=== PATIENT | male | born 1985 | race American Indian/Alaskan Native ===

== ENCOUNTER 2017-11-28 12:26 | Emergency (ER) | payer OTHER ==
[2017-11-28 12:43] VITALS: BP 121/92; PULSE 91; TEMP 98.2; BMI 32.5
[2017-11-28] MEDS ORDERED: DIPHTH,PERTUSS(ACELL),TET 0.5 ML DISP.SYRIN IM ONE (13:16)
--- NOTE | 2017-11-28 13:16 | PDOC ---
History of Present Illness - General Chief Complaint: Injury Stated Complaint: INJURY Time Seen by Provider: 11/28/17 13:02 History Source: Patient Exam Limitations: No Limitations - History of Present Illness Initial Comments: CHIEF COMPLAINT: 32 y/o afebrile male here with puncture wound to left foot. HISTORY OF PRESENT ILLNESS: The patient states he stepped on a dirty nail yesterday. He is here for a tetanus shot. Past History - Past Medical History Allergies/Adverse Reactions: Allergies Allergy/AdvReac Type Severity Reaction Status Date / Time No Known Allergies Allergy Verified 11/28/17 12:33 Home Medications: Ambulatory Orders Amox-Tr/K Cl [Augmentin - 875Mg Tablet] 1 tab PO BID #20 tablet 11/28/17 COPD: No DVT: No Dementia: No - Immunization History Immunization Up to Date: Yes - Suicide/Smoking/Psychosocial Hx Smoking History: Never smoked Number of Cigarettes Smoked Daily: 4 Information on smoking cessation initiated: No Hx Alcohol Use: No Drug/Substance Use Hx: No Substance Use Type: None Review of Systems - Review of Systems Able to Perform ROS?: Yes Constitutional: No: Symptoms Reported HEENTM: No: Symptoms Reported Musculoskeletal: Yes: Other (pain to bottom of left foot) Neurological: No: Symptoms reported *Physical Exam - Vital Signs Last Vital Signs Temp Pulse Resp BP Pulse Ox 98.2 F 91 H 17 121/92 97 11/28/17 12:34 11/28/17 12:34 11/28/17 12:34 11/28/17 12:34 11/28/17 12:34 - Physical Exam Comments: THe patient is very well appearing, ambulatory, in NAD or obvious discomfort. General Appearance: Yes: Nourished, Appropriately Dressed Integumentary: positive: Normal Color, Other (puncture wound to plantar surface of left foot, at base of big toe with surrounding TTP. No surrounding erythema , warmth or streaking) Medical Decision Making - Medical Decision Making A/P: 32 y/o male with puncture wound from dirty nail to bottom of left foot. Full ROM of all toes and ankle of left foot. Will give tetanus shot and discharge to home with rx for augmentin. Pt instructed to return to the ER with any worsening or concerning symptoms. The patient verbalizes understanding of all instructions, has no further questions and is awaiting discharge. *DC/Admit/Observation/Transfer Diagnosis at time of Disposition: Puncture wound - Discharge Dispostion Disposition: HOME Condition at time of disposition: Good - Prescriptions Prescriptions: Amox-Tr/K Cl [Augmentin - 875Mg Tablet] 1 tab PO BID #20 tablet - Referrals Referrals: Carlos Aguilar MD [Primary Care Provider] - - Patient Instructions Printed Discharge Instructions: DI for Puncture Wound Additional Instructions: Discharge Instructions: -You received a tetanus shot today; you are now up to date for 10 years -A prescription for antibiotics has been sent to your pharmacy -Return to the ER with any worsening or concerning symptoms - Post Discharge Activity
== END 2017-11-28 13:37 | disposition home or self-care (01) ==
LOC: JERFT 12:26
PROC: 3E0234Z Introduction of Serum, Toxoid and Vaccine into Muscle, Percutaneous Approach (ICD-10-PCS; principal; 2017-11-28)
DX: S91.332A Puncture wound without foreign body, left foot, initial encounter (principal); W45.0XXA Nail entering through skin, initial encounter; Y93.89 Activity, other specified; Y92.89 Other specified places as the place of occurrence of the external cause; Y99.8 Other external cause status
CPT/HCPCS: 90471; 90715; 99281-25

== ENCOUNTER 2019-05-15 08:18 | Emergency (ER) | payer OTHER ==
[2019-05-15] MEDS ORDERED: TETRACAINE 0.5% OPHTH SOLN 2 ML BOTTLE ONE (09:06)
[2019-05-15] MEDS ORDERED: FLUORESCEIN NA 1 EA STRIP ONE (09:18)
[2019-05-15 09:23] VITALS: BP 134/80; PULSE 92; TEMP 97.8; BMI 29.9
[2019-05-15] MEDS ORDERED: IBUPROFEN 400 MG TABLET (FP) PO ONE ×2 (09:34)
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
== END 2019-05-15 09:42 | disposition home or self-care (01) ==
LOC: JER 08:18 → JERFT 08:18
PROC: 4A07X0Z Measurement of Visual Acuity, External Approach (ICD-10-PCS; principal; 2019-05-15)
DX: S05.02XA Injury of conjunctiva and corneal abrasion without foreign body, left eye, initial encounter (principal); Y04.0XXA Assault by unarmed brawl or fight, initial encounter; Y93.89 Activity, other specified; Y92.89 Other specified places as the place of occurrence of the external cause; Y99.8 Other external cause status
CPT/HCPCS: 99173; 99281-25

== ENCOUNTER 2020-09-10 15:54 | Emergency (ER) | payer OTHER | END 2020-09-10 17:25 | disposition home or self-care (01) | LOC: JVIRT 15:54 | DX: G44.83 Primary cough headache (principal); Z11.52 Encounter for screening for COVID-19 | CPT/HCPCS: C9803; G2012-GT; U0003 ==

== ENCOUNTER 2022-02-06 15:48 | Emergency (ER) | payer OTHER ==
[2022-02-06 16:01] VITALS: BP 138/93; PULSE 96; TEMP 99; BMI 30.1
== END 2022-02-06 19:45 | disposition home or self-care (01) ==
LOC: JER 15:48
DX: U07.1 COVID-19 (principal)
CPT/HCPCS: 0241U-QW; 71046-TC-FY; 99284-25

== ENCOUNTER 2022-07-08 12:30 | Emergency (ER) | payer OTHER ==
[2022-07-08 13:08] VITALS: BP 141/90; PULSE 98; RESP 19; TEMP 98.6; BMI 27.9
== END 2022-07-08 15:12 | disposition home or self-care (01) ==
LOC: JER 12:30
DX: J06.9 Acute upper respiratory infection, unspecified (principal)
CPT/HCPCS: 0241U-QW; 99283-25

== ENCOUNTER 2022-09-07 13:38 | Emergency (ER) | payer OTHER ==
[2022-09-07 14:01] VITALS: BP 147/90; PULSE 90; RESP 18; TEMP 98.6; BMI 30.1
[2022-09-07] MEDS ORDERED: KETOROLAC TROMETHAMINE 30 MG/1 ML VIAL IM ONE (15:19)
== END 2022-09-07 17:22 | disposition home or self-care (01) ==
LOC: JER 13:38 → JERFT 13:38
PROC: 3E0233Z Introduction of Anti-inflammatory into Muscle, Percutaneous Approach (ICD-10-PCS; principal; 2022-09-07)
DX: S92.902A Unspecified fracture of left foot, initial encounter for closed fracture (principal); W22.09XA Striking against other stationary object, initial encounter
CPT/HCPCS: 73610-TC-RT-FY; 73630-TC-RT-FY; 99284-25

== ENCOUNTER 2024-01-02 13:55 | Emergency (ER) | payer OTHER ==
[2024-01-02 14:08] VITALS: TEMP 98.8; BMI 30.4
[2024-01-02] MEDS ORDERED: diazePAM CARPU-JECT 10 MG/2 ML DISP.SYRIN ONE (14:10)
[2024-01-02] MEDS: diazePAM CARPU-JECT 10 MG/2 ML DISP.SYRIN IVPUSH ONE (14:15)
[2024-01-02] MEDS: SODIUM CHLORIDE 1,000 ML IV STA (14:34)
[2024-01-02 15:00] LABS: BASO % 0.3 % (0-2.0); EOS % 0.2 % (0-4.5); LYMPH % 13.4 % (8-40); MCH 30.1 pg (25.7-33.7); MEAN CELL VOLUME 88.4 fl (80-96); MEAN PLT VOLUME 8.3 fl (7.5-11.1); NEUT % 78.1 % (42.8-82.8); PLATELET COUNT 300 10^3/uL (134-434); RBC 4.97 M/mm3 (4.00-5.60); RDW 14.7 % (11.9-15.9)
[2024-01-02 15:05] LABS: INR 1.02 (0.83-1.09); PROTHROMBIN TIME (PATIENT) 11.7 SEC (9.7-13.0)
[2024-01-02 15:13] LABS: POTASSIUM 4.2 mmol/L (3.5-5.1)
[2024-01-02 15:15] LABS: CALCIUM 9.4 mg/dL (8.5-10.1)
[2024-01-02 15:16] LABS: ALBUMIN 4.5 g/dl (3.4-5.0); BLOOD UREA NITROGEN 13.7 mg/dL (7-18)
[2024-01-02 15:20] LABS: BILIRUBIN,TOTAL 0.9 mg/dL (0.2-1)
[2024-01-02 15:21] LABS: TOT PROT 8.4 g/dl (6.4-8.2)
[2024-01-02] MEDS: LACTATED RINGERS SOLUTION 1000 ML INFUS.BAG IV ONE (16:48)
[2024-01-02 17:46] LABS: OPIATES, URI NEGATIVE (NEGATIVE); URINE AMPHETAMINES NEGATIVE (NEGATIVE); URINE BARBITURATES NEGATIVE (NEGATIVE)
[2024-01-02 17:47] LABS: METHADONE, UR NEGATIVE (NEGATIVE); PHENCYCLIDINE,URINE NEGATIVE (NEGATIVE)
[2024-01-02 17:52] LABS: COCAINE, UR POSITIVE (NEGATIVE); URINE BENZODIAZEPINES POSITIVE (NEGATIVE)
[2024-01-02 18:06] VITALS: BP 126/66; PULSE 89; RESP 19
== END 2024-01-02 18:37 | disposition home or self-care (01) ==
LOC: JER 13:55
PROC: 3E033GC Introduction of Other Therapeutic Substance into Peripheral Vein, Percutaneous Approach (ICD-10-PCS; principal; 2024-01-02)
PROC: 3E0337Z Introduction of Electrolytic and Water Balance Substance into Peripheral Vein, Percutaneous Approach (ICD-10-PCS; 2024-01-02)
DX: F14.10 Cocaine abuse, uncomplicated (principal); R07.9 Chest pain, unspecified; R00.2 Palpitations
CPT/HCPCS: 36415; 71045-TC-FY; 80053; 80307; 82962; 84443; 84484; 85025; 85610; 99284-25